=== PATIENT | female | born 1950 | race Native Hawaiian/Other Pacific Islander ===

== ENCOUNTER 2020-10-09 15:57 | Emergency (ER) | payer OTHER ==
[~2020-10-09] VITALS: Ht 167.6 cm; Wt 53.1 kg
[2020-10-09 15:57] VITALS: BP 125/63; TEMP 97.6
[2020-10-09 16:34] LABS: PLATELET COUNT 195 K/uL (152-353)
[2020-10-09 16:41] LABS: POTASSIUM 4.4 mmol/L (3.6-5.2)
[2020-10-09] MEDS ORDERED: LEVO0.1224 PO (20:31)
[2020-10-09] MEDS ORDERED: PRINIVIL10 MG PO (20:46)
[2020-10-09] MEDS ORDERED: METO50TA63 PO (20:52)
[2020-10-09] MEDS ORDERED: SERT50TA PO (20:53)
[2020-10-09] MEDS ORDERED: MELOXICAM7.5 MG PO (20:54)
[2020-10-09] MEDS ORDERED: BUSPIRONE10 MG PO (20:55)
[2020-10-09] MEDS ORDERED: RISP0.5T2 PO (20:57)
[2020-10-09] MEDS ORDERED: LAMICTAL100 MG PO (20:57)
[2020-10-09] MEDS ORDERED: MIRTAZAPINE7.5 MG PO (20:59)
[2020-10-09] MEDS ORDERED: MELATONIN3 M1 PO (20:59)
[2020-11-04] MEDS ORDERED: SERT50TA PO (09:59)
[2020-11-04] MEDS ORDERED: VRAYLAR1.5 MG PO (10:00)
[2020-11-04] MEDS ORDERED: OXCARBAZEPIN300 MG PO (10:00)
[2020-11-04] MEDS ORDERED: VRAYLAR3 MG PO (10:00)
[2020-11-04] MEDS ORDERED: LEVO0.117 PO (10:01)
[2020-11-04] MEDS ORDERED: MELOXICAM7.5 MG PO (10:01)
[2020-11-04] MEDS ORDERED: METO50TA63 PO (10:01)
[2020-11-04] MEDS ORDERED: LISI10TA11 PO (10:01)
[2020-11-04] MEDS ORDERED: OLANZAPINE10 MG PO (10:01)
[2020-11-04] MEDS ORDERED: MELATONIN MAXIMU5 MG PO (10:01)
[2020-11-04] MEDS ORDERED: LAMO100T PO (10:02)
[2020-11-04] MEDS ORDERED: BENZ1TAB43 PO (10:02)
[2020-11-04] MEDS ORDERED: CHOL100034 PO (10:02)
== END 2020-10-09 17:18 | disposition other institution (70) ==
LOC: ED 16:04
PROVIDERS: Emergency Medicine Emergency Medical Services
DX: R46.89 Other symptoms and signs involving appearance and behavior (principal); R45.1 Restlessness and agitation; F25.8 Other schizoaffective disorders; Z91.81 History of falling; Z11.59 Encounter for screening for other viral diseases; Z04.6 Encounter for general psychiatric examination, requested by authority
CPT/HCPCS: 80053; 85027; 87635; 93005; 99283; 99285; U0003